=== PATIENT | female | born 1965 ===

== ENCOUNTER 2021-02-15 17:05 | Emergency (ER) | payer MEDICAID, OTHER ==
[~2021-02-15] VITALS: Ht 152.4 cm; Wt 63.5 kg
[2021-02-15 20:09] VITALS: BP 146/83
[2021-02-15] MEDS ORDERED: TETANUS-DIPTH-ACEL PERTUSSIS 0.5ML SYR Tdap IM ONE (20:45)
[2021-02-15] MEDS ORDERED: LIDOCAINE 1% HCL (LOCAL ANESTH.) INJ 20ML MDV IJ ONE (20:45)
== END 2021-02-15 21:42 | disposition home or self-care (01) ==
LOC: ER 17:05
DX: S61.211A Laceration without foreign body of left index finger without damage to nail, initial encounter (principal); W26.0XXA Contact with knife, initial encounter; Y93.89 Activity, other specified; Y92.89 Other specified places as the place of occurrence of the external cause; Y99.8 Other external cause status
CPT/HCPCS: 12002; 90471; 90715; 99283; J2001